=== PATIENT | female | born 1980 ===

== ENCOUNTER 2018-12-29 13:48 | Emergency (ER) | payer SELFPAY ==
[~2018-12-29] VITALS: Ht 152.4 cm; Wt 86.0 kg
[2018-12-29 13:51] VITALS: BP 123/81
[2018-12-29 14:50] LABS: BASOPHILS # (AUTO) 0.02 x10^3/uL (0-0.1); BASOPHILS % (AUTO) 0 % (0-1); EOSINOPHILS # (AUTO) 0.24 x10^3/uL (0-0.4); EOSINOPHILS % (AUTO) 4 % (1-7); LYMPHOCYTES # (AUTO) 2.34 x10^3/uL (1-3.4); LYMPHOCYTES % (AUTO) 35 % (22-44); MD NO; MEAN CORPUSCULAR HGB CONC 33.1 g/dL (32.4-35.8); MEAN CORPUSCULAR VOLUME 99.5 fL (80-100); MEAN PLATELET VOLUME 7.8 fL (7.4-10.4); MONOCYTES # (AUTO) 0.44 x10^3/uL (0.2-0.8); MONOCYTES % (AUTO) 7 % (2-9); NEUTROPHILS # (AUTO) 3.68 x10^3/uL (1.8-6.8); NEUTROPHILS % (AUTO) 55 % (42-75); PLATELET COUNT 341 x10^3/uL (130-400); RED BLOOD COUNT 3.86 x10^6/uL (3.82-5.3); RED CELL DISTRIBUTION WIDTH 12.7 % (9.6-15.2)
[2018-12-29 14:55] LABS: ALBUMIN 3.5 g/dL (3.4-5.0); ANION GAP 7 mmol/L (5-15); CALCIUM 8.5 mg/dL (8.5-10.1); CHLORIDE 108 mmol/L (98-107); CREATININE 0.59 mg/dL (0.55-1.02)
[2018-12-29 15:00] LABS: TROPONIN I < 0.015 ng/mL (0.000-0.045)
--- NOTE | 2018-12-29 15:07 | NUR ---
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 PT ELOPED PRIOR TO SALES OPERATIONS BEING ABLE TO DISCUSS POC WITH PT AND HAVE PT SIGN AMA PAPERWORK.
== END 2018-12-29 15:10 | disposition left against medical advice (07) ==
LOC: ED 15:04
DX: R42 Dizziness and giddiness (principal)
CPT/HCPCS: 36415; 80048; 82040; 84484; 85025; 93005; 99284